=== PATIENT | female | born 1995 | race Caucasian/White ===

== ENCOUNTER 2025-04-11 12:42 | Emergency (ER) | payer OTHER, SELFPAY ==
[2025-04-11 12:48] VITALS: BP 90/60; PULSE 67; RESP 18; TEMP 36.6; O2SAT 98
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
[2025-04-11] MEDS: Lidocaine/Epinephri/Tetracaine Topical Gel 3 ML TP (14:05)
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
== END 2025-04-11 16:28 | disposition home or self-care (01) ==
PROVIDERS: Emergency Provider Student in an Organized Health Care Education/Training Program
DX: S81.811A Laceration without foreign body, right lower leg, initial encounter (principal); V18.0XXA Pedal cycle driver injured in noncollision transport accident in nontraffic accident, initial encounter
CPT/HCPCS: 99283 ×2; 12004; 73590; J2004